=== PATIENT | male | born 1955 | race Hispanic/Latino ===

== ENCOUNTER 2018-02-13 14:09 | Emergency (ER) | payer OTHER ==
[2018-02-13 14:25] VITALS: BMI 45.5
[2018-02-13 14:38] VITALS: BP 106/61
--- NOTE | 2018-02-13 14:59 | ED PDOC ---
Arrival/HPI - General Chief Complaint: Trauma Time Seen by Provider: 02/13/18 14:27 Historian: Patient - History of Present Illness Narrative History of Present Illness (Text): 02/13/18 16:56 A 62 year old male presents to the emergency department complaining of a facial injury after mechanical fall today. Patient reports he tripped and fell sustaining an abrasion to forehead and nose. Patient denies any physical complaints at this time. Patient admits to drinking alcohol today. Patient denies any other injuries, loss of consciousness, head trauma, headache, dizziness, neck pain, nausea, vomiting, abdominal pain, back pain, chest pain, shortness of breath, cough or any other complaints. Time/Duration: Prior to Arrival Context: Home, Tripped Past Medical History - Provider Review Nursing Documentation Reviewed: Yes - Cardiac Hx Cardiac Disorders: No - Pulmonary Hx Respiratory Disorders: No - Neurological Hx Neurological Disorder: No - HEENT Hx HEENT Disorder: No - Renal Hx Renal Disorder: No - Endocrine/Metabolic Hx Endocrine Disorders: No - Hematological/Oncological Hx Blood Disorders: No - Integumentary Hx Dermatological Disorder: No - Musculoskeletal/Rheumatological Hx Musculoskeletal Disorders: No - Gastrointestinal Hx Gastrointestinal Disorders: No - Genitourinary/Gynecological Hx Genitourinary Disorders: No - Psychiatric Hx Psychophysiologic Disorder: No Hx Substance Use: No Family/Social History - Physician Review Nursing Documentation Reviewed: Yes Family/Social History: Unknown Family HX Smoking Status: Never Smoked Hx Alcohol Use: No Hx Substance Use: No Allergies/Home Meds Allergies/Adverse Reactions: Allergies No Known Allergies Allergy (Verified 02/13/18 14:24) Home Medications: Home Meds Medication Instructions Recorded Confirmed Acetaminophen/Oxycodone Hydr 1 tab PO HS 07/13/13 07/13/13 [APAP/Oxycodone 325 mg-5 mg] Allopurinol [Allopurinol] 300 mg PO DAILY 07/13/13 07/13/13 Aspirin [Aspirin] 81 mg PO DAILY 07/13/13 07/13/13 Doxycycline Monohydrate [Oracea] 40 mg PO DAILY 07/13/13 07/13/13 Levothyroxine Sodium 0.175 mg PO DAILY 07/13/13 07/13/13 [Levothyroxine Sodium] Metoprolol Succinate [Metoprolol 25 mg PO BID 10/07/13 10/07/13 Succinate] [id number] Ethyl Esters [Lovaza] 1 gm PO DAILY 07/13/13 07/13/13 Review of Systems - Physician Review All systems were reviewed & negative as marked: Yes - Review of Systems Respiratory: absent: SOB, Cough Cardiovascular: absent: Chest Pain Gastrointestinal: absent: Abdominal Pain, Nausea, Vomiting Musculoskeletal: absent: Back Pain, Neck Pain Skin: Other (abrasion to forehead and nose) Neurological: absent: Headache, Dizziness Physical Exam Vital Signs Reviewed: Yes Vital Signs Temp Pulse Resp BP Pulse Ox 02/13/18 15:15 98.0 F 88 20 96 02/13/18 14:32 98.4 F 82 22 106/61 95 Temperature: Afebrile Blood Pressure: Normal Pulse: Regular Respiratory Rate: Normal Appearance: Positive for: Well-Appearing, Non-Toxic, Comfortable Pain Distress: None Mental Status: Positive for: Alert and Oriented X 3 - Systems Exam Head: Present: Abrasion (to forehead and nose). No: Tenderness, Contusion, Swelling, Laceration Pupils: Present: PERRL Extroacular Muscles: Present: EOMI Conjunctiva: Present: Normal Ears: Present: Normal, NORMAL TM, Normal Canal Mouth: Present: Moist Mucous Membranes Pharnyx: Present: Normal. No: ERYTHEMA, EXUDATE, TONSILS ENLARGED Neck: Present: Normal Range of Motion. No: MIDLINE TENDERNESS, Paraspinal Tenderness Respiratory/Chest: Present: Clear to Auscultation, Good Air Exchange. No: Respiratory Distress, Accessory Muscle Use Cardiovascular: Present: Regular Rate and Rhythm, Normal S1, S2. No: Murmurs Abdomen: Present: Normal Bowel Sounds. No: Tenderness, Distention, Peritoneal Signs Back: Present: Normal Inspection. No: Midline Tenderness, Paraspinal Tenderness Upper Extremity: Present: Normal Inspection, Normal ROM, NORMAL PULSES. No: Cyanosis, Edema Lower Extremity: Present: Normal Inspection, NORMAL PULSES, Normal ROM. No: Edema, CALF TENDERNESS Neurological: Present: GCS=15, CN II-XII Intact, Speech Normal, Motor Func Grossly Intact, Normal Sensory Function, Normal Cerebellar Funct, Gait Normal Skin: Present: Warm, Dry, Normal Color. No: Rashes Psychiatric: Present: Alert, Oriented x 3, Normal Insight, Normal Concentration Medical Decision Making ED Course and Treatment: 02/13/18 16:56 Impression: A 62 year old male with abrasions to forehead and nose after mechanical fall. Patient admits to drinking alcohol. He denies any complaints at this time. Progress Notes: Patient wishing to go home. I have discussed the plan with the patient, who expresses understanding. Patient in agreement with plan to be discharged home. Patient is stable for discharge. Patient was instructed to follow up with physician or return if symptoms worsen or new concerning symptoms arise. - Scribe Statement The provider has reviewed the documentation as recorded by the Scribe Analilia Rodríguez Provider Scribe Attestation: All medical record entries made by the Scribe were at my direction and personally dictated by me. I have reviewed the chart and agree that the record accurately reflects my personal performance of the history, physical exam, medical decision making, and the department course for this patient. I have also personally directed, reviewed, and agree with the discharge instructions and disposition. Disposition/Present on Arrival - Present on Arrival Any Indicators Present on Arrival: No History of DVT/PE: No History of Uncontrolled Diabetes: No Urinary Catheter: No History of Decub. Ulcer: No History Surgical Site Infection Following: None - Disposition Have Diagnosis and Disposition been Completed?: Yes Diagnosis: Alcohol intoxication Disposition: HOME/ ROUTINE Disposition Time: 15:10 Condition: GOOD Discharge Instructions (ExitCare): Alcohol Abuse and Alcoholism (DC) Additional Instructions: Thank you for letting us take care of you today. The emergency medical care you received today was directed at your acute symptoms. If you were prescribed any medication, please fill it and take as directed. It may take several days for your symptoms to resolve. Return to the Emergency Department if your symptoms worsen, do not improve, or if you have any other problems. Please contact your doctor or call one of the physicians/clinics you have been referred to that are listed on the Patient Visit Information form that is included in your discharge packet. Bring any paperwork you were given at discharge with you along with any medications you are taking to your follow up visit. Our treatment cannot replace ongoing medical care by a primary care provider (PCP) outside of the emergency department. Thank you for allowing the [facility] team to be part of your care today. Do not drink too much alcohol. Follow up with your doctor in 2-3 days for re-evaluation and further management. Referrals: Checo Licea, DO [Primary Care Provider] - Follow up with primary Forms: [employer] (Hebrew)
[2018-02-13 15:33] VITALS: PULSE 88; RESP 20; TEMP 98; O2SAT 96
== END 2018-02-13 15:15 | disposition home or self-care (01) ==
LOC: ED 14:09
DX: F10.129 Alcohol abuse with intoxication, unspecified (principal)

== ENCOUNTER 2019-02-21 14:15 | Emergency (ER) | payer OTHER ==
[2019-02-21 14:15] VITALS: BMI 40.4
[2019-02-21] MEDS ORDERED: TDAP Vaccine 0.5 mL Syr IM ONE (14:25)
--- NOTE | 2019-02-21 14:27 | ED PDOC ---
Arrival/HPI - General Historian: Patient - History of Present Illness Narrative History of Present Illness (Text): 02/21/19 14:22 64 year old male, with a Past medical history of alcohol abuse, who presents to the emergency department BIB EMT for mechanical fall earlier today. As per EMT, patient was found lying on the ground by bystanders. No LOC. Patient admits to drinking alcohol today, but can not recall the amount of drinks he had. Patient endorses pain in the elbows. Patient denies any injury to the head. Symptom Onset: Sudden Symptom Course: Unchanged Activities at Onset: Light Context: Street Past Medical History - Provider Review Nursing Documentation Reviewed: Yes - Cardiac Hx Hypertension: Yes - Pulmonary Hx Respiratory Disorders: No - Neurological Hx Neurological Disorder: No - HEENT Hx HEENT Disorder: No - Renal Hx Renal Disorder: No - Endocrine/Metabolic Hx Endocrine Disorders: No - Hematological/Oncological Hx Blood Disorders: No - Integumentary Hx Dermatological Disorder: No - Musculoskeletal/Rheumatological Hx Musculoskeletal Disorders: No - Gastrointestinal Hx Gastrointestinal Disorders: No - Genitourinary/Gynecological Hx Genitourinary Disorders: No - Psychiatric Hx Psychophysiologic Disorder: No Hx Substance Use: No - Surgical History Hx Coronary Artery Bypass Graft: Yes Family/Social History - Physician Review Nursing Documentation Reviewed: Yes Family/Social History: Unknown Family HX Smoking Status: Never Smoked Hx Alcohol Use: No Hx Substance Use: No Allergies/Home Meds Allergies/Adverse Reactions: Allergies No Known Allergies Allergy (Verified 02/13/18 14:24) Home Medications: Home Meds Medication Instructions Recorded Confirmed Levothyroxine Sodium 150 mcg PO DAILY 07/13/13 02/21/19 Metoprolol Succinate 25 mg PO BID 07/13/13 02/21/19 Allopurinol [Zyloprim] 300 mg PO DAILY 06/19/18 02/21/19 Aspirin [Adult Aspirin] 81 mg PO DAILY 06/19/18 02/21/19 Furosemide [Lasix] 40 mg PO DAILY 06/19/18 02/21/19 Gabapentin [Neurontin] 300 mg PO TID 06/19/18 02/21/19 Multivit,Iron,Min 5/Folic Acid 1 tab PO DAILY 06/19/18 02/21/19 [Strovite Forte] Simvastatin 10 mg PO QPM 06/19/18 02/21/19 Review of Systems - Physician Review All systems were reviewed & negative as marked: Yes - Review of Systems Respiratory: absent: SOB Cardiovascular: absent: Chest Pain Musculoskeletal: absent: Back Pain Neurological: absent: Headache Medical Decision Making ED Course and Treatment: 02/21/19 14:21 Impression: 64 year old male presents to the emergency department BIB EMT for mechanical fall earlier today. Plan: -- CT Head -- Alcohol serum -- Boostrix -- Reassess and disposition Progress Notes: 02/21/19 16:03 Patient sedated and in 4 point restraints still agitated. Patient's at the bedside requesting for restraints to be taken off as well as to take patient criselda e so that she may observe for sobriety. Discussion regarding condition of patient's fall while under the influence of alcohol stressed to who wishes to continue to take patient home. She understands the risks of taking patient home without prior CTH imaging and clinical sobriety and is willing to sign AMA form on behalf of the patient. AMA form signed. Patient escorted out of the ER assisted by his . - Scribe Statement The provider has reviewed the documentation as recorded by the Aria De Leon All medical record entries made by the Georgeibsimon were at my direction and personally dictated by me. I have reviewed the chart and agree that the record accurately reflects my personal performance of the history, physical exam, medical decision making, and the department course for this patient. I have also personally directed, reviewed, and agree with the discharge instructions and disposition. Disposition/Present on Arrival - Present on Arrival Any Indicators Present on Arrival: No History of DVT/PE: No History of Uncontrolled Diabetes: No Urinary Catheter: No History of Decub. Ulcer: No History Surgical Site Infection Following: None - Disposition Have Diagnosis and Disposition been Completed?: Yes Diagnosis: Alcohol abuse Disposition: AGAINST MEDICAL ADVICE Disposition Time: 16:12 Condition: FAIR
[2019-02-21] MEDS ORDERED: DiphenhydrAMINE 50 mg/ml Inj IM STA (14:45)
[2019-02-21] MEDS ORDERED: DiphenhydrAMINE 50 mg/ml Inj ONE (14:50)
[2019-02-21 15:40] VITALS: TEMP 98
[2019-02-21 16:21] VITALS: BP 129/85; PULSE 85; RESP 18; O2SAT 99
== END 2019-02-21 16:10 | disposition left against medical advice (07) ==
LOC: ED 14:15
DX: F10.10 Alcohol abuse, uncomplicated (principal); Z23 Encounter for immunization
CPT/HCPCS: 90471; 90715; 96372; 99284; J1200; J2060